=== PATIENT | male | born 1995 | race Caucasian/White ===

== ENCOUNTER 2020-12-31 15:19 | Emergency (ER) | payer OTHER ==
[~2020-12-31] VITALS: Ht 177.8 cm; Wt 67.1 kg
[2020-12-31 15:22] VITALS: BP 130/79
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
--- NOTE | 2020-12-31 15:38 | NUR ---
ABRAHAM WALDROP AT BEDSIDE EVALUATING PT
[2020-12-31] MEDS ORDERED: LIDOCAINE MPF 1% 10 MG/ML VIAL INJ ONE (15:40)
--- NOTE | 2020-12-31 15:49 | NUR ---
DR MEADE AT BEDSIDE EVALUATING PT
[2020-12-31] MEDS ORDERED: IBUP-1842 PO (16:45)
[2020-12-31] MEDS ORDERED: CEPH-588 PO (16:45)
--- NOTE | 2020-12-31 17:30 | NUR ---
Patient discharged with v/s stable. Written and verbal after care instructions ABOUT MEDICATION AND LACERATION CARE given and explained. Patient alert, oriented and verbalized understanding of instructions. Ambulatory with steady gait. All questions addressed prior to discharge. ID band removed. Patient advised to follow up with PMD. Rx of CEPHALEXIN AND IBUPROFEN given. Patient educated on indication of medication including possible reaction and side effects. Opportunity to ask questions provided and answered.
[2020-12-31 17:33] VITALS: BP 130/79
== END 2020-12-31 17:30 | disposition home or self-care (01) ==
LOC: MED 15:19
DX: S61.412A Laceration without foreign body of left hand, initial encounter (principal); Z79.1 Long term (current) use of non-steroidal anti-inflammatories (NSAID); Z79.2 Long term (current) use of antibiotics; W26.8XXA Contact with other sharp object(s), not elsewhere classified, initial encounter; Y93.39 Activity, other involving climbing, rappelling and jumping off; Y92.89 Other specified places as the place of occurrence of the external cause; Y99.8 Other external cause status
CPT/HCPCS: 12002; 90471; 90715; 99283; J2001